=== PATIENT | male | born 1975 | race Caucasian/White ===

== ENCOUNTER 2016-12-07 17:03 | Emergency (ER) | payer OTHER ==
[~2016-12-07] VITALS: Ht 188 cm; Wt 111.1 kg
[~2016-12-07 17:03] MED LIST: CIPRODEX OTIC7.5 ML OT; MOTRIN800 MG PO; PERCOCET 325 MG1 TA2 PO; ZOFRAN ODT4 MG PO
[2016-12-07 17:51] LABS: ABSOLUTE BASOPHIL COUNT 0 /CUMM (0.0-0.2); ABSOLUTE EOSINOPHIL COUNT 0.5 /CUMM (0.0-0.7); ABSOLUTE GRANULOCYTE CT 4.9 /CUMM (1.4-6.5); ABSOLUTE MONOCYTE COUNT 0.5 /CUMM (0.10-0.60); BASOPHIL % 0.3 % (0.0-2.0); EOSINOPHIL % 5.6 % (0-5); GRANULOCYTE % 55.4 % (42.2-75.2); HEMATOCRIT 45.1 % (42-52); MEAN CORPUSCULAR HGB 31.1 PG (27.0-31.0); MEAN CORPUSCULAR HGB CONC 33.1 G/DL (33.0-37.0); MEAN CORPUSCULAR VOLUME 93.7 FL (80.0-94.0); MEAN PLATELET VOLUME 8.7 FL (7.4-10.4); PLATELET COUNT 192 /CUMM (130-400); RBC DISTRIBUTION WIDTH 14.5 % (11.5-14.5); RED BLOOD CELL CT 4.81 /CUMM (4.70-6.10); WHITE BLOOD CELL COUNT 8.9 /CUMM (4.8-10.8)
--- NOTE | 2016-12-07 18:45 | ED GI/GU/ABDOMINAL COMPLAINT ---
History of Present Illness General Chief Complaint: Male Genitourinary Problems Stated Complaint: PT STATES " MY RT KIDNEY HURTS" Source: patient, old records Exam Limitations: no limitations Vital Signs & Intake/Output Vital Signs & Intake/Output Vital Signs Date Time Temp Pulse Resp B/P B/P Pulse O2 O2 Flow FiO2 Mean Ox Delivery Rate 12/07 1727 98.1 82 16 149/96 98 Room Air Allergies Coded Allergies: morphine (Mild, ITCHING 12/07/16) Reconcile Medications Allopurinol 300 MG TABLET 1 TAB PO DAILY KIDNEY STONE Ciprofloxacin HCl/Dexameth (Ciprodex Otic Suspension) 0.3 %-0.1 % DROPS.SUSP 4 GTT OT BID otitis externa Ibuprofen (Motrin) 800 MG TAB 1 TAB PO 4 TIMES/DAY PRN PAIN Ondansetron (Zofran Odt) 4 MG TAB.RAPDIS 1 TAB PO 4 TIMES/DAY PRN NAUSEA Oxycodone HCl/Acetaminophen (Percocet 5-325 MG Tablet) 5 MG-325 MG TABLET 1 TAB PO BID BREAKTHROUGH PAIN OXYCODONE HCL/ACETAMINOPHEN (Percocet 5-325 MG Tablet) 325 MG/5 MG TAB 1-2 TAB PO Q4-6 PRN PRN PAIN sixteen... [id number] Triage Note: 41M WITH HX KIDNEY STONES C/O R FLANK PAIN RADIATING INTO ABDOMEN AND GROIN SINCE YESTERDAY. PAIN IS INTERMITTENT, STABBING. VOMITED THIS MORNING, INTERMITTENT NAUSEA. TOOK EXCEDRINE THIS MORNING WITHOUT RELIEF. USUALLY TAKES ALLOPURINOL FOR PREVENTION BUT RAN OUT TWO WEEKS AGO. RECENT LITHITRIPSY TO BLAST STONES APPROX [address] LO INFORMED OF PT AND MEDICATED WITH ZOFRAN AND TORADOL PER eMAR IN TRIAGE. IV EST AND LABS DRAWN AND SENT (BLUE SST LAV ISAACS PINK) AND URINE TRIO ALSO SENT TO LAB Triage Nurses Notes Reviewed? yes Onset: Abrupt Duration: week(s): (2) Timing: multiple episodes today Quality/Severity: moderate, sharpness, severe Location: right flank Radiation: no radiation Prior Abdominal Problems: similar symptoms HPI: 41 year old male with history of renal colic presents with right flank pain for the pst 2 weeks. He has a history of kidney stones and usually takes allopurinol but ran out of his prescription two weeks ago and can't get it refilled. He states that he can't get in touh with Dr. Lantigua or with his PA. States he has been dealing with the pain for the past few days and that he takes nyquil at night with some relief. Past History Travel History Traveled to [place] past 21 day No Medical History Any Pertinent Medical History? see below for history Neurological: NONE EENT: NONE Cardiovascular: hypertension Respiratory: NONE Gastrointestinal: NONE Hepatic: NONE Renal: KIDNEY STONES Musculoskeletal: NONE Psychiatric: NONE Endocrine: NONE Blood Disorders: NONE Cancer(s): NONE [employer]/Reproductive: NONE Surgical History Surgical History: none Psychosocial History What is your primary language [place] Tobacco Use: Current Daily Use Daily Tobacco Use Amount/Type: => 5 Cigarettes daily Family History Hx Contributory? No Review of Systems Review of Systems Constitutional: Denies: chills, fever. EENTM: Reports: no symptoms. Respiratory: Denies: cough, short of breath. Cardiovascular: Denies: chest pain. GI: Reports: abdominal pain. Genitourinary: Reports: discharge, dysuria, frequency. Musculoskeletal: Reports: back pain. Skin: Reports: no symptoms. Neurological/Psychological: Reports: no symptoms. Hematologic/Endocrine: Reports: polyuria. Denies: bruising, bleeding, polydipsia. Immunologic/Allergic: Denies: splenectomy. All Other Systems: Reviewed and Negative Physical Exam Physical Exam General Appearance: well developed/nourished, alert, awake, anxious Head: atraumatic, normal appearance Eyes: Bilateral: normal appearance, PERRL, EOMI. Ears, Nose, Throat, Mouth: hearing grossly normal, moist mucous membrane Neck: normal inspection, supple, full range of motion Respiratory: normal breath sounds, chest non-tender, no respiratory distress Cardiovascular: regular rate/rhythm Peripheral Pulses: 2+ radial (R), 2+ radial (L) Gastrointestinal: normal bowel sounds, soft, non-tender Back: CVA tenderness (R) Extremities: normal range of motion Neurologic/Psych: no motor/sensory deficits, awake, alert, oriented x 3 Skin: intact, normal color, warm/dry Core Measures ACS in differential dx? No Severe Sepsis Present: No Septic Shock Present: No Progress Differential Diagnosis: urinary retention, UTI/pyelo, URETERAL OBSTRUCTION Plan of Care: Orders Procedure Date/time Status URINALYSIS 12/07 1728 Complete LIPASE 12/07 1728 Complete COMPREHENSIVE METABOLIC PANEL 12/07 1728 Complete CBC WITHOUT DIFFERENTIAL 12/08 1727 Complete Laboratory Tests 12/07/16 1740: Anion Gap 13, Estimated GFR > 60, BUN/Creatinine Ratio 15.6, Glucose 93, Calcium 9.5, Total Bilirubin 0.5, AST 25, ALT 36, Alkaline Phosphatase 61, Total Protein 7.8, Albumin 4.8, Globulin 3.0, Albumin/Globulin Ratio 1.6, Lipase 108, CBC w Diff NO MAN DIFF REQ, RBC 4.81, MCV 93.7, MCH 31.1 H, RDW 14.5, MPV 8.7, Gran % 55.4, Lymphocytes % 33.2, Monocytes % 5.5, Eosinophils % 5.6 H, Basophils % 0.3 , Absolute Granulocytes 4.9, Absolute Lymphocytes 3.0, Absolute Monocytes 0.5, Absolute Eosinophils 0.5, Absolute Basophils 0, PUBS MCHC 33.1 12/07/161736: Urinalysis LIGHT H, Urine Color YEL, Urine Clarity HAZY H, Urine pH 6.0, Ur Specific [place] >= 1.030, Urine Protein 100 H, Urine Ketones NEG, Urine Nitrite NEG, Urine Bilirubin NEG, Urine Urobilinogen 0.2, Ur Leukocyte Esterase NEG, Ur Microscopic SEDIMENT EXAMINED, Urine RBC >75 H, Urine WBC RARE, Ur Epithelial Cells RARE, Urine Crystals 3+ CA OX H, Granular Casts RARE H, Urine Mucus MOD H, Urine Hemoglobin LARGE H, Urine Glucose NEG LABS, TORADOL, ZOFRAN ORDERED. IMPROVED SYMPTOMS. PRESCRIPTIONS ORDERED FOR ALLOPURINOL AND PAIN MEDICATIONS. D/W DR LANTIGUA WHO WILL FOLLOW UP WITH THE PATIETN IN THE OFFICE. (WALLY MONTGOMERY,MIGUELITO) Initial ED EKG: none Departure Departure Time of Disposition: 1906 Disposition: HOME OR SELF CARE Condition: Stable Clinical Impression Primary Impression: Renal colic on right side Referrals: JOE MONTGOMERY,ALEXANDRA CHAVIRA MD,PAULA Scott (PCP/Family) Additional Instructions: TAKE THE ALLOPURINOL AND PERCOCET DIRECTED. FOLLOW UP WITH DR LANTIGUA IN THE OFFICE. THE OFFICE SHOULD GIVE YOU A CALL TO SET UP AN APPOINTMENT. RETURN NEEDED. Departure Forms: Customer Survey General Discharge Information Prescriptions: Current Visit Scripts Oxycodone HCl/Acetaminophen (Percocet 5-325 MG Tablet) 1 TAB PO BID #12 TAB Allopurinol 1 TAB PO DAILY #30 TAB
[2016-12-07] MEDS ORDERED: ALLOPURINOL300 M1 PO ×2 (19:03→19:06)
[2016-12-07] MEDS ORDERED: PERCOCET 5-3251 EACH PO ×2 (19:03→19:04)
[2016-12-07] MEDS ORDERED: ALLOPURINOL100 M1 PO (19:04)
[2016-12-07 19:19] VITALS: BP 146/94
== END 2016-12-07 19:19 ==
LOC: ERH 17:03
PROVIDERS: Emergency Medicine
DX: N23 Unspecified renal colic (principal)
CPT/HCPCS: 81001; 96374; 96375; J1885; J2405